=== PATIENT | male | born 2000 | race Caucasian/White ===

== ENCOUNTER 2020-10-09 14:28 | Emergency (ER) | payer OTHER ==
[~2020-10-09] VITALS: Ht 180.3 cm; Wt 79.4 kg
[2020-10-09] MEDS ORDERED: AMOXICILLIN 50500 MG PO (14:42)
[2020-10-09 16:00] VITALS: BP 126/72
--- NOTE | 2020-10-10 13:42 | EKG ---
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
== END 2020-10-09 16:01 | disposition home or self-care (01) ==
LOC: M.ERS 14:28
DX: R07.89 Other chest pain (principal)